=== PATIENT | female | born 1960 | race Two or more races ===

== ENCOUNTER 2020-04-11 15:53 | Emergency (ER) | payer OTHER ==
[~2020-04-11] VITALS: Ht 149.9 cm; Wt 53.7 kg
--- NOTE | 2020-04-11 18:54 | NUR ---
PT CALLED FROM LOBBY TO TRIAGE TO RECHECK VS. PT BACK TO LOBBY IN WHEELCHAIR AT THIS TIME.
[2020-04-11 18:55] VITALS: BP 156/88
--- NOTE | 2020-04-11 19:48 | NUR ---
PT NOT IN LOBBY FOR D/C AND RX
--- NOTE | 2020-04-11 19:49 | NUR ---
PT FOUND IN ANOTHER LOCATION AND DISCHARGED IN NAD
== END 2020-04-11 19:51 | disposition home or self-care (01) ==
LOC: ED 19:45
DX: S80.01XA Contusion of right knee, initial encounter (principal); S60.211A Contusion of right wrist, initial encounter; S60.031A Contusion of right middle finger without damage to nail, initial encounter; M79.89 Other specified soft tissue disorders; M25.461 Effusion, right knee; E11.9 Type 2 diabetes mellitus without complications; W01.0XXA Fall on same level from slipping, tripping and stumbling without subsequent striking against object, initial encounter; Y93.89 Activity, other specified; Y92.69 Other specified industrial and construction area as the place of occurrence of the external cause; Y99.0 Civilian activity done for income or pay
CPT/HCPCS: 99284